=== PATIENT | female | born 1965 | race Caucasian/White ===

== ENCOUNTER → 2023-11-12 10:53 | Outpatient (REF) | payer OTHER, SELFPAY | LOC: HWWDC 10:53 | PROVIDERS: ATTENDING PHYSICIAN Physician Assistant Medical | DX: Z12.31 Encounter for screening mammogram for malignant neoplasm of breast (principal) | CPT/HCPCS: 77063; 77067 ==

== ENCOUNTER 2024-06-17 17:06 | Emergency (ER) | payer OTHER, SELFPAY ==
[2024-06-17 17:09] VITALS: BP 150/86
--- NOTE | 2024-06-17 17:25 | ED.GENMED ---
History of Present Illness
General
Chief Complaint: Insect Sting
Source: patient
Exam Limitations: none
Time Seen by Provider: 06/17/24 17:15
Nursing documentation reviewed up to this point in time: agreed with
History of Present Illness
History of Present Illness:
59-year-old female presents emergency room complaining of shortness of breath, chest tightness and throat tightness after being stung by a bee 30 minutes ago. She took her EpiPen at home, and her symptoms are improving.
Past History
Past History
ED Past Medical History: Psychiatric (Depression, anxiety, panic disorder), Other (Migraine) and Other (Anaphylaxis to bee stings)
ED Past Surgical History: Gynecological (Uterine ablation), Urological (Bladder sling) and Other (Eye surgery)
Social History
Tobacco: Non-smoker
Alcohol: None
Drug: None
Living: with family
Review of Systems
Review of Systems
Allergies reviewed?: Yes
All Other Systems: Not applicable
Constitutional: Reports no symptoms
EENT: Reports other (Throat tightness)
Respiratory: Reports trouble breathing
Cardiac: Reports no symptoms
ABD/GI: Reports no symptoms
: Reports no symptoms
Musculoskeletal: Reports no symptoms
Skin: Reports no symptoms
Neurological: Reports no symptoms
Endocrine: Reports no symptoms
Hematologic/Lymphatic: Reports no symptoms
Psychiatric: Reports no symptoms
Phy Exam
Physical Exam
Physical Exam:
Physical Exam
General: no apparent distress, not acutely ill
Neck: supple. no meningeal signs. normal posterior pharynx
Heart: s1/s2 regular rate and rhythm, no murmur. equal radial
pulses.
HEENT: Pupils equal round reactive to light, EOMI
Lungs: no acute respiratory distress. clear bilaterally
Abdomen: normal bowel sounds. not tender. no CVAT
Neuro: alert and oriented. no focal neurological deficits cranial nerves II through XII intact
Skin: no rash
Psychiatric: well kept. interactive and cooperative
Extremities: no edema. no calf tenderness. negative homans. good distal pulses
Course
Orders/Labs/Results
Orders:
Orders
06/17/24 17:10
EKG [Electrocardiogram (*1)] Urgent
Reason for Study: Tachycardia
EKG- Treatment ONCE
06/17/24 17:27
Acetaminophen [Tylenol] 650 mg PO NOW STA
06/17/24 17:56
Ipratropium/Albuterol Sulfate [Duoneb] 3 ml .ROUTE .STK-MED ONE
06/17/24 17:57
EPINEPHrine PF [Adrenalin] 1 mg .ROUTE .STK-MED ONE
06/17/24 17:58
0.9% Sodium Chloride 1000 ml [Nss] 1,000 ml IV BOLUS
EPINEPHrine PF [Adrenalin] 0.3 mg IM NOW STA
Ipratropium/Albuterol Sulfate [Duoneb] 3 ml INH R NOW STA
Vital Signs
Initial and Last Documented VS:
Initial Vital Signs
Pulse Resp BP Pulse Ox
100 17 150/86 94
06/17/24 17:09 06/17/24 17:09 06/17/24 17:09 06/17/24 17:09
Last Documented Vital Signs
Pulse Resp BP Pulse Ox
84 12 110/61 100
06/17/24 19:30 06/17/24 19:30 06/17/24 19:00 06/17/24 19:30
MDM/Problems Addressed
Differential Diagnosis Includes:
Anaphylaxis, angioedema
MDM/Problems Addressed:
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 Improved after IM epinephrine. Patient has EpiPen at home. She had 2 in her purse in the ED that I verified.
*Pulse Oximetry
Patient hypoxic: no
*EKG
Interpreted by ED Provider?: Yes
EKG Intrepretation Date: 06/17/24
EKG Intrepretation Time: 17:11
Interpretation: normal
Comparison EKG: no changes
Heart Rate: 93
Rate: normal
Rhythm: sinus
Rolla: normal axis
Interval: normal interval
QRS Pattern: right bundle branch block
Ischemia: no ischemia
*Medical Device Assembler Interpretation
Rate: normal
Interpretation: normal
Heart Rate: 92
Rhythm: sinus
*Critical Care Note
Total Time (30-74mins, 75-104mins- exclusive of procedures): 30
Patient Management
Social determinants of health affecting care: Living situation
Escalation/DeEscalation of care consider admission/obs:
Admit not indicated
ED Attending Note
-
Portions of this chart may have been created with voice recognition software.� Occasional wrong word or��sound alike� substitutions may have occurred due to the inherent limitations of voice recognition software.
Discharge Plan
Departure
Patient Disposition: Home (Routine Discharge)
Date of Disposition: 06/17/24
Time of Disposition: 20:39
Patient with high blood pressure during this ER visit?: No
Condition: Good
Discharge Problem:
Anaphylaxis
Instructions: Anaphylaxis
Prescriptions:
No Action
epinephrine [EpiPen 2-Navid] 0.3 mg/0.3 mL auto-injector
0.3 mg IM ONCE PRN (Reason: anaphylaxis) Qty: 2 0RF
Referrals:
Edwina Perez CRNP [Family Provider] - Call in 1-3 days for appt
Interventions
Interventions:
ED- Fall Risk Assessment Last Done: 06/17/24 17:33
ED-Skin Assessment Last Done: 06/17/24 17:33
ED- Pulmonary Assessment Last Done: 06/17/24 17:33
Discharge Date and Time
Print Language: PORTUGUESE
[2024-06-17 17:26] VITALS: BMI 26.7
[2024-06-17] MEDS: TYLENOL 650 MG PO (17:32)
[2024-06-17] MEDS: DUONEB 3 ML INH (18:03)
[2024-06-17] MEDS: NSS 1000 IV (18:05)
[2024-06-17] MEDS: ADRENALIN 0.3 MG IM (18:05)
[2024-06-17 18:06] VITALS: BP 106/61
[2024-06-17 19:00] VITALS: BP 110/61
[2024-06-17 20:00] VITALS: BP 111/64
== END 2024-06-17 20:51 | disposition home or self-care (01) ==
LOC: EMR 17:06
PROVIDERS: EMERGENCY PHYSICIAN Emergency Medicine; FAMILY PHYSICIAN Nurse Practitioner
DX: T63.441A Toxic effect of venom of bees, accidental (unintentional), initial encounter (principal); T78.2XXA Anaphylactic shock, unspecified, initial encounter; R06.02 Shortness of breath; R07.89 Other chest pain; R09.89 Other specified symptoms and signs involving the circulatory and respiratory systems; R51.9 Headache, unspecified; L29.9 Pruritus, unspecified; R20.2 Paresthesia of skin; I45.10 Unspecified right bundle-branch block; F41.9 Anxiety disorder, unspecified; F32.A Depression, unspecified; F41.0 Panic disorder [episodic paroxysmal anxiety]; Z91.030 Bee allergy status; Z88.5 Allergy status to narcotic agent
CPT/HCPCS: 99291; 96360; 94640; 96372; 93005

== ENCOUNTER → 2025-02-20 14:01 | Outpatient (REF) | payer OTHER, SELFPAY | LOC: HWWDC 14:01 | PROVIDERS: ATTENDING PHYSICIAN Physician Assistant Medical; REFERRING PHYSICIAN Obstetrics & Gynecology | DX: Z12.31 Encounter for screening mammogram for malignant neoplasm of breast (principal) | CPT/HCPCS: 77063; 77067 ==